=== PATIENT | female | born 1985 | race Caucasian/White ===

== ENCOUNTER 2021-03-16 15:28 | Outpatient (CLI) | payer BC ==
[2021-03-16 16:21] LABS: % IRON SATURATION 28 % (20-50); IRON 85 ug/dL (28-170); TOTAL IRON BINDING CAPACITY 304 ug/dL (250-450); TRANSFERRIN 217 mg/dL (192-382)
[2021-03-16 16:22] LABS: THYROID STIMULATING HORMONE 1.15 uIU/mL (0.34-5.60)
[2021-03-16 16:28] LABS: FERRITIN 41.2 ng/mL (11.0-306.8)
== END 2021-03-16 15:29 | disposition home or self-care (01) ==
LOC: LAB 15:28
PROVIDERS: ATTEND Nurse Practitioner Family
DX: E03.8 Other specified hypothyroidism (principal); E06.3 Autoimmune thyroiditis; D64.9 Anemia, unspecified
CPT/HCPCS: 36415; 82728; 83540; 84443; 84466

== ENCOUNTER 2021-07-30 16:02 | Outpatient (CLI) | payer BC ==
--- NOTE | 2021-07-30 20:43 | Ultrasound Report ---
PROCEDURE: Pelvic w/Transvaginal INDICATIONS: CHRONIC PELVIC PAIN TECHNIQUE: Real-time scanning was performed of the pelvic organs, with image documentation. Additional endovagi nal scanning was necessary due to incomplete visualization of the adnexal and endometrial structures by transabdominal scanning. COMPARISON: None. FINDINGS: No pathologic free abdominal or pelvic fluid. Uterus: Uterus is normal in size at 9.1 x 3.3 x 3.7 cm. The endometrium measures 3.9 mm in combined thickness. Ovaries: Right ovary measures 3.6 x 2.3 x 2.3 cm with an ovarian volume of 9.8 mL. Left ovary measur es 3.6 x 1.5 x 3.1 cm with a volume of 8.66 mL. Both ovaries have greater than 12 follicles. IMPRESSION: Both ovaries have greater than 12 follicles raising the question of polycystic ovary syndrome. Sugges t clinical correlation. Otherwise unremarkable. Reviewed by: Vargas Hendrix MD on 07/30/2021 8:42 PM PST Approved by: Vargas Hendrix MD on 07/30/2021 8:42 PM PST Station ID: [id number]
== END 2021-07-30 16:03 | disposition home or self-care (01) ==
LOC: DI 16:02
PROVIDERS: ATTEND Obstetrics & Gynecology
DX: R10.2 Pelvic and perineal pain (principal); R93.89 Abnormal findings on diagnostic imaging of other specified body structures

== ENCOUNTER 2021-08-04 07:24 | Outpatient (CLI) | payer BC ==
[2021-08-04 08:13] LABS: HCT - HEMATOCRIT 41.9 % (37.0-47.0); HGB - HEMOGLOBIN 14.1 g/dL (12.0-16.0); MEAN CORPUSCULAR HEMOGLOBIN 32.6 pg (27.0-31.0); MEAN CORPUSCULAR HGB CONC 33.7 g/dL (32.0-36.0); MEAN PLATELET VOLUME 10.3 fL (7.9-10.8); RED BLOOD COUNT 4.32 10^6/uL (4.20-5.40); RED CELL DISTRIBUTION WIDTH 12.1 % (12.0-15.0); WHITE BLOOD COUNT 6.7 x10^3/uL (4.8-10.8)
[2021-08-04 08:36] LABS: % IRON SATURATION 34 % (20-50); ALBUMIN 4.2 g/dL (3.2-5.5); ALBUMIN/GLOBULIN RATIO 1.4 (1.0-2.2); ALKALINE PHOSPHATASE 34 IU/L (42-121); ALT ALANINE AMINOTRANSFERASE 16 IU/L (10-60); AST ASPARTATE AMINOTRANSFERASE 15 IU/L (10-42); BILIRUBIN,TOTAL 0.8 mg/dL (0.2-1.0); BUN - BLOOD UREA NITROGEN 19 mg/dL (6-20); CALCIUM 9.1 mg/dL (8.5-10.3); CARBON DIOXIDE - CO2 27 mmol/L (21-32); CHLORIDE 104 mmol/L (101-111); CHOL/HDL RATIO 2.7 (<4.4); CHOLESTEROL 207 mg/dL; CREATININE 0.6 mg/dL (0.4-1.0); GFR - MDRD 114 (>89); GLUCOSE 95 mg/dL (70-100); HDL CHOLESTEROL 78 mg/dL; IRON 99 ug/dL (28-170); POTASSIUM 3.8 mmol/L (3.5-5.0); SODIUM 140 mmol/L (135-145); TOTAL IRON BINDING CAPACITY 291 ug/dL (250-450); TOTAL PROTEIN 7.1 g/dL (6.7-8.2); TRANSFERRIN 208 mg/dL (192-382); TRIGLYCERIDES 29 mg/dL
[2021-08-04 08:50] LABS: FERRITIN 44.6 ng/mL (11.0-306.8)
[2021-08-04 08:51] LABS: PROLACTIN 10.49 ng/mL
[2021-08-04 12:25] LABS: ESTIMATED AVERAGE GLUCOSE 94 mg/dL (70-100); HEMOGLOBIN A1c% 4.9 % (4.27-6.07)
== END 2021-08-04 07:25 | disposition home or self-care (01) ==
LOC: LAB 07:24
PROVIDERS: ATTEND Obstetrics & Gynecology
DX: E28.2 Polycystic ovarian syndrome (principal); Z13.220 Encounter for screening for lipoid disorders; Z13.21 Encounter for screening for nutritional disorder; L65.9 Nonscarring hair loss, unspecified
CPT/HCPCS: 36415; 80053; 80061; 81599; 82306; 82627; 82728; 83036; 83498; 83520; 83540; 83721; 84146; 84403; 84443; 84466; 85027

== ENCOUNTER 2021-08-25 07:19 | Outpatient (CLI) | payer BC | END 2021-08-25 07:20 | disposition home or self-care (01) | LOC: LAB 07:19 | PROVIDERS: ATTEND Obstetrics & Gynecology | DX: Z32.01 Encounter for pregnancy test, result positive (principal) | CPT/HCPCS: 36415; 84702 ==

== ENCOUNTER 2021-08-28 13:34 | Outpatient (CLI) | payer BC | END 2021-08-28 13:35 | disposition home or self-care (01) | LOC: LAB 13:34 | PROVIDERS: ATTEND Obstetrics & Gynecology | DX: Z32.01 Encounter for pregnancy test, result positive (principal) | CPT/HCPCS: 36415; 84702 ==

== ENCOUNTER 2021-08-31 07:49 | Outpatient (CLI) | payer BC | END 2021-08-31 07:50 | disposition home or self-care (01) | LOC: LAB 07:49 | PROVIDERS: ATTEND Obstetrics & Gynecology | DX: Z32.01 Encounter for pregnancy test, result positive (principal) | CPT/HCPCS: 36415; 84702 ==

== ENCOUNTER 2021-09-06 15:47 | Outpatient (CLI) | payer BC ==
--- NOTE | 2021-09-06 17:07 | Ultrasound Report ---
PROCEDURE: OB First Trimester w/TV INDICATIONS: POSITIVE TEST OUTSIDE/PRIOR DATING DATA: Last menstrual period (LMP): 07/23/2021. LMP-based estimated date of delivery (KEV): 04/29/2022. First dating scan (date and location): 09/06/2021. Estimated date of delivery (KEV) from first dating scan: 04/29/2022. The below data below was generated using the study generated KEV of 04/29/2022 TECHNIQUE: Real-time scanning was performed of the fetus and maternal pelvic organs, with image documentation. Endovaginal scanning was also performed to better visualize the fetus and maternal ovaries. COMPARISON: None FINDINGS: Embryo: Single intrauterine gestational sac is seen with fetus and yolk sac seen. heart rate i s 152 bpm. [place]-rump length measures 0.65 cm. Estimated gestational age is 6 weeks, 3 days. Measurement variability in dating: +/- 4 weeks by LMP, +/- 7 days by mean sac diameter (use before 6 weeks gestation if crown-rump length not able to be measured), +/- 5 days by crown-rump length (6-12 weeks gestation). Maternal organs: Right ovary is within normal limits. Corpus luteum is noted in left ovary measures 2 .4 x 1.9 x 2.5 cm in size. Small amount of free fluid is noted adjacent to left ovary. IMPRESSION: 1. Single live intrauterine with fetus and yolk sac seen. heart rate is 152 bpm. [place] mated gestational age is 6 weeks, 3 days. 2. No perigestational hemorrhage is seen. 3. Suggestion of corpus luteum in left ovary as above. Small amount of free fluid in left adnexa. Nor mal-appearing right ovary. Reviewed by: Levi Arizmendi MD on 09/06/2021 5:06 PM PST Approved by: Levi Arizmendi MD on 09/06/2021 5:06 PM PST Station ID: [id number]
== END 2021-09-06 15:48 | disposition home or self-care (01) ==
LOC: DI 15:47
PROVIDERS: ATTEND Obstetrics & Gynecology
DX: O99.891 Other specified diseases and conditions complicating pregnancy (principal); R93.89 Abnormal findings on diagnostic imaging of other specified body structures; Z3A.01 Less than 8 weeks gestation of pregnancy

== ENCOUNTER 2021-09-10 08:44 | Outpatient (CLI) | payer BC ==
[2021-09-10 09:09] LABS: BASOPHILS % (AUTO) 0.5 %; EOSINOPHILS # (AUTO) 0.2 10^3/uL (0.0-0.7); EOSINOPHILS % (AUTO) 2.2 %; HCT - HEMATOCRIT 40.2 % (37.0-47.0); HGB - HEMOGLOBIN 14.1 g/dL (12.0-16.0); LYMPHOCYTES # (AUTO) 1.6 10^3/uL (1.5-3.5); LYMPHOCYTES % (AUTO) 18.5 %; MEAN CORPUSCULAR HEMOGLOBIN 33.4 pg (27.0-31.0); MEAN CORPUSCULAR HGB CONC 35.1 g/dL (32.0-36.0); MEAN CORPUSCULAR VOLUME 95.3 fL (81.0-99.0); MEAN PLATELET VOLUME 10.4 fL (7.9-10.8); MONOCYTES # (AUTO) 0.6 10^3/uL (0.0-1.0); MONOCYTES % (AUTO) 6.7 %; NEUTROPHILS # (AUTO) 6.3 10^3/uL (1.5-6.6); NEUTROPHILS % (AUTO) 71.8 %; PLT - PLATELET COUNT 218 10^3/uL (130-450); RED BLOOD COUNT 4.22 10^6/uL (4.20-5.40); WHITE BLOOD COUNT 8.8 x10^3/uL (4.8-10.8)
[2021-09-10 09:11] LABS: BILIRUBIN,URINE NEGATIVE (NEGATIVE); GLUCOSE, URINE (UA) NEGATIVE (NEGATIVE); KETONES,URINE (UA) NEGATIVE (NEGATIVE); LEUKOCYTE ESTERASE, URINE NEGATIVE (NEGATIVE); NITRITE,URINE NEGATIVE (NEGATIVE); OCCULT BLOOD,URINE NEGATIVE (NEGATIVE); PH,URINE 5.5 PH (5.0-7.5); PROTEIN,URINE NEGATIVE (NEGATIVE); UROBILINOGEN,URINE 0.2 (NORMAL) E.U./dL (NORMAL)
[2021-09-10 09:37] LABS: BACTERIA,URINE None Seen /HPF (None Seen); CLARITY,URINE CLEAR (CLEAR); RBC,URINE None Seen /HPF (0-5); SQUAMOUS EPITHELIAL CELL,UR NONE SEEN (<= Few); WBC,URINE 0-3 /HPF (0-5)
[2021-09-11 09:27] LABS: HEPATITIS B SURFACE ANTIGEN NON-REACTIVE (NON-REACTIVE); HEPATITIS C ANTIBODY NON-REACTIVE (NON-REACTIVE)
[2021-09-13 16:02] LABS: HIV AG/AB 4TH GEN NON-REACTIVE (NON-REACTIVE)
== END 2021-09-10 08:45 | disposition home or self-care (01) ==
LOC: LAB 08:44
PROVIDERS: ATTEND Obstetrics & Gynecology
DX: Z36.89 Encounter for other specified antenatal screening (principal); Z32.01 Encounter for pregnancy test, result positive
CPT/HCPCS: 36415; 81001; 85025; 86592; 86762; 86787; 86803; 86850; 86900; 86901; 87086; 87340; 87389

== ENCOUNTER 2021-10-05 07:31 | Outpatient (CLI) | payer BC | END 2021-10-05 07:32 | disposition home or self-care (01) | LOC: LAB 07:31 | PROVIDERS: ATTEND Obstetrics & Gynecology | DX: O09.891 Supervision of other high risk pregnancies, first trimester (principal); Z36.89 Encounter for other specified antenatal screening | CPT/HCPCS: 36415 ==

== ENCOUNTER 2021-10-15 08:00 | Outpatient (CLI) | payer BC ==
[2021-10-15 21:52] LABS: BACTERIAL VAGINOSIS DNA NEGATIVE (NEGATIVE); CANDIDA GLABRATA DNA NEGATIVE (NEGATIVE); CANDIDA GROUP DNA NEGATIVE (NEGATIVE); CANDIDA KRUSEI DNA NEGATIVE (NEGATIVE); TRICHOMONAS VAGINALIS DNA NEGATIVE (NEGATIVE)
[2021-10-15 22:32] LABS: CHLAMYDIA TRACHOMATIS DNA NEGATIVE (NEGATIVE); NEISSERIA GONORRHOEAE DNA NEGATIVE (NEGATIVE); TRICHOMONAS VAGINALIS DNA NEGATIVE (NEGATIVE)
== END 2021-10-15 23:59 | disposition home or self-care (01) ==
LOC: LAB.WC 08:00
PROVIDERS: ATTEND Obstetrics & Gynecology
DX: N76.0 Acute vaginitis (principal); Z11.3 Encounter for screening for infections with a predominantly sexual mode of transmission
CPT/HCPCS: 87491; 87591; 87661; 87801

== ENCOUNTER 2021-10-20 12:00 | Outpatient (CLI) | payer BC ==
[2021-10-20 12:40] LABS: THYROID STIMULATING HORMONE 0.68 uIU/mL (0.34-5.60)
== END 2021-10-20 12:01 | disposition home or self-care (01) ==
LOC: LAB 12:00
PROVIDERS: ATTEND Obstetrics & Gynecology
DX: O09.891 Supervision of other high risk pregnancies, first trimester (principal)
CPT/HCPCS: 36415; 84443

== ENCOUNTER 2021-11-12 07:46 | Outpatient (CLI) | payer OTHER | END 2021-11-12 07:47 | disposition home or self-care (01) | LOC: LAB 07:46 | PROVIDERS: ATTEND Specialist | DX: Z34.02 Encounter for supervision of normal first pregnancy, second trimester (principal); Z3A.16 16 weeks gestation of pregnancy | CPT/HCPCS: 81599; 82105 ==

== ENCOUNTER 2022-01-18 07:51 | Outpatient (CLI) | payer BC, OTHER | END 2022-01-18 07:52 | disposition home or self-care (01) | LOC: LAB 07:51 | PROVIDERS: ATTEND Obstetrics & Gynecology | DX: E03.9 Hypothyroidism, unspecified (principal) | CPT/HCPCS: 36415; 84443 ==

== ENCOUNTER 2022-02-03 07:41 | Outpatient (CLI) | payer OTHER ==
[2022-02-03 08:22] LABS: GTT GLUCOSE,FASTING 87 mg/dL (70-100)
== END 2022-02-03 07:42 | disposition home or self-care (01) ==
LOC: LAB 07:41
PROVIDERS: ATTEND Nurse Practitioner
DX: O99.815 Abnormal glucose complicating the puerperium (principal)
CPT/HCPCS: 36415; 82951; 82952

== ENCOUNTER 2022-03-25 06:55 | Outpatient (CLI) | payer OTHER ==
--- NOTE | 2022-03-25 17:15 | Ultrasound Report ---
PROCEDURE: OB F/U or Repeat INDICATIONS: GDM CLASS A1 OUTSIDE/PRIOR DATING DATA: Last menstrual period (LMP): 07/23/2021. LMP-based estimated date of delivery (KEV): 04/29/2022. First dating scan (date and location): 09/06/2021. Estimated date of delivery (KEV) from first dating scan: 04/29/2022. TECHNIQUE: Real-time scanning was performed of the fetus, with image documentation and biometric measurements. Endovaginal scanning: Not indicated COMPARISON: 02/23/2022, 09/06/2021. FINDINGS: General: A single living intrauterine gestation is present. Presentation: Vertex Placenta: Placental position is anterior, without previa. Amniotic fluid index: 15 cm, normal for gestational age. heart rate: 143 beats per minute. Maternal cervical canal: Not evaluated. biometrics: Biparietal diameter: 8.5 cm, 35 weeks, 5 days. Head circumference: 31.47 cm, 35 weeks, 2 days. Abdominal circumference: 29.61 cm, 33 weeks, 4 days. Femur length: 6.72 cm, 34 weeks, 4 days. Estimated gestational age from initial scan: 35 weeks, 0 day. Composite gestational age from present scan: 34 weeks, 6 days. Estimated weight and percentile: 2385.3 g, 26.2%. Measurement variability in biometric dating: +/- 10 days from 12-20 weeks gestation, +/- 2 weeks from 20-30 weeks gestation, +/- 3 weeks at 30 weeks gestation or more. Other: chest, stomach, bilateral kidneys and urinary bladder are visualized and are within norm al limits. IMPRESSION: 1. Single live intrauterine gestation with fetus in vertex presentation. heart rate is 143 bpm. Normal amount of amniotic fluid. Estimated weight is at 26.2%. Reviewed by: Levi Arizmendi MD on 03/25/2022 5:13 PM PDT Approved by: Levi Arizmendi MD on 03/25/2022 5:13 PM PDT Station ID: [id number]
== END 2022-03-25 06:56 | disposition home or self-care (01) ==
LOC: DI 06:55
PROVIDERS: ATTEND Obstetrics & Gynecology
DX: O24.410 Gestational diabetes mellitus in pregnancy, diet controlled (principal); Z3A.34 34 weeks gestation of pregnancy

== ENCOUNTER 2022-04-05 14:02 | Outpatient (CLI) | payer OTHER ==
[2022-04-05 14:43] LABS: ALBUMIN 3.1 g/dL (3.2-5.5); ALBUMIN/GLOBULIN RATIO 0.9 (1.0-2.2); BILIRUBIN,TOTAL 0.8 mg/dL (0.2-1.0); CALCIUM 9.3 mg/dL (8.5-10.3); CREATININE 0.5 mg/dL (0.4-1.0); POTASSIUM 3.7 mmol/L (3.5-5.0); TOTAL PROTEIN 6.4 g/dL (6.7-8.2)
== END 2022-04-05 14:03 | disposition home or self-care (01) ==
LOC: LAB 14:02
PROVIDERS: ATTEND Obstetrics & Gynecology
DX: O09.513 Supervision of elderly primigravida, third trimester (principal); O99.713 Diseases of the skin and subcutaneous tissue complicating pregnancy, third trimester; L29.9 Pruritus, unspecified
CPT/HCPCS: 36415; 80053; 82247; 82248; 82542

== ENCOUNTER 2022-04-06 08:00 | Outpatient (CLI) | payer OTHER | END 2022-04-06 23:59 | disposition home or self-care (01) | LOC: LAB.WC 08:00 | PROVIDERS: ATTEND Obstetrics & Gynecology | DX: Z36.85 Encounter for antenatal screening for Streptococcus B (principal) | CPT/HCPCS: 87797 ==

== ENCOUNTER 2022-04-26 09:30 | Inpatient (IN) | payer OTHER ==
[~2022-04-26 09:30] MED LIST: LACTATED RINGERS 1,000 ML IV SCH
[2022-04-26] MEDS ORDERED: TRANEXAMIC ACID IN NACL 1,000 MG/100 ML BAG IV PRN (09:38)
[2022-04-26] MEDS ORDERED: OXYTOCIN 10 UNIT/ML VIAL IM PRN (09:38)
[2022-04-26] MEDS ORDERED: miSOPROStoL 200 MCG TABLET PR PRN (09:38)
[2022-04-26] MEDS ORDERED: LABETALOL 20 MG/4 ML SYRINGE IVP PRN ×3 (09:38)
[2022-04-26] MEDS ORDERED: miSOPROStoL 200 MCG TABLET BC PRN (09:38)
[2022-04-26] MEDS ORDERED: fentaNYL 100 MCG/2 ML VIAL IVP PRN (09:38)
[2022-04-26] MEDS ORDERED: METHYLERGONOVINE 0.2 MG/ML VIAL IM PRN (09:38)
[2022-04-26] MEDS ORDERED: NIFEdipine 10 MG CAPSULE PO PRN (09:38)
[2022-04-26] MEDS ORDERED: SODIUM CHLORIDE FLUSH 0.9% 10 ML SYRINGE IVP PRN (09:38)
[2022-04-26] MEDS ORDERED: CARBOPROST TROMETHAMINE 250 MCG/ML AMP IM PRN (09:38)
[2022-04-26] MEDS ORDERED: TERBUTALINE 1 MG/ML VIAL SUBQ PRN (09:38)
[2022-04-26] MEDS ORDERED: lidocaine 1% 20 ML MDV ID PRN (09:38)
[2022-04-26] MEDS ORDERED: hydrALAZINE INJ 20 MG/ML VIAL IVP PRN ×2 (09:38)
[2022-04-26] MEDS ORDERED: SODIUM CHLORIDE FLUSH 0.9% 10 ML SYRINGE IVP SCH (10:00)
[2022-04-26] MEDS ORDERED: LACTATED RINGERS 1,000 ML IV ONE (11:00)
[2022-04-26] MEDS: miSOPROStoL 100 MCG TABLET BC SCH (11:05)
[2022-04-26 11:39] LABS: BASOPHILS # (AUTO) 0.1 10^3/uL (0.0-0.1); BASOPHILS % (AUTO) 0.4 %; EOSINOPHILS # (AUTO) 0.2 10^3/uL (0.0-0.7); EOSINOPHILS % (AUTO) 1.1 %; HCT - HEMATOCRIT 39.1 % (37.0-47.0); HGB - HEMOGLOBIN 13.5 g/dL (12.0-16.0); LYMPHOCYTES # (AUTO) 0.8 10^3/uL (1.5-3.5); LYMPHOCYTES % (AUTO) 5.5 %; MEAN CORPUSCULAR HEMOGLOBIN 32.9 pg (27.0-31.0); MEAN CORPUSCULAR HGB CONC 34.5 g/dL (32.0-36.0); MEAN CORPUSCULAR VOLUME 95.4 fL (81.0-99.0); MEAN PLATELET VOLUME 11.6 fL (7.9-10.8); MONOCYTES # (AUTO) 0.7 10^3/uL (0.0-1.0); MONOCYTES % (AUTO) 5.2 %; NEUTROPHILS # (AUTO) 11.9 10^3/uL (1.5-6.6); NEUTROPHILS % (AUTO) 86.7 %; PLT - PLATELET COUNT 158 10^3/uL (130-450); RED CELL DISTRIBUTION WIDTH 13.5 % (12.0-15.0); WHITE BLOOD COUNT 13.7 x10^3/uL (4.8-10.8)
--- NOTE | 2022-04-26 14:51 | HISTORY & PHYSICAL EXAMINATION ---
Admit History - : 1 Parity: 0 Care: positive: [facility] Risk/History: positive: None Complications This : positive: Gestational diabetes (A1GDM) Smoking Status: Never smoker - Mother's Labs Mother's Blood Type: positive: O Mother's RH: positive: Positive GBS: positive: Group B Step Negative Rubella Status: positive: Immune - Other Maternal History Other Maternal History: HPI: 37-year-old at 39 weeks 4 days gestation by LMP consistent with 6-week ultrasound presents today for cervical ripening. She has good movement. Denies loss of fluid. No ESPINOZA/BV or RUQP. No vaginal bleeding. Denies nausea and vomiting. Denies urinary urgency or dysuria. All other symptoms reviewed and were negative except per HPI. Course LMP: 07/23/2021 KEV BY LMP:04/29/2022 Initial U/S: 09/06/2021 6 wks 3 days c/w LMP KEV FINAL KEV: 04/29/2022 A1 gestational diabetes: Continues to have good control. Continue surveillance at this time. 03/25/22 Normal growth scan. 15 cm amniotic fluid, 2305 g, 26 percentile. Elderly Primigravida: Will be 37 at time of delivery. Taking aspirin 81 mg daily. Problems: Hypothyroidism: Currently on 50 mcg daily except 100 mcg on Sundays. Last TSH 10/20/2021: 0.68. Repeat 01/18/22 0.95. 03/11/22 0.83. We will likely check outside of . O POSITIVE /Rubella: IMMUNE VZV: IMMUNE Gentic testing: [place] : low risk having a ( GIRL ) AFP- negative FAS: WNL, 365G, 79TH%ILE, 3VC, Anterior pleacenta w/o previa, but low lying at 2.3cm from internal cervical os. SAMARIA wnl Glucola at 28 weeks-1HR 176 3HR 87 219, 192, 144 (FAIL) DM education complete covid vaccine: Fully vaccinated . Boosted 03/13 TDAP 01/31/2022 GBS 04/06- Negative HSV: Denies Breast pump Rx Given. Has pump MOD:Anticipate . Membrane sweep today. IOL tomorrow if unsuccessful. pp contraception: Likely IUD Pap: 11/03/2017 : NORMAL PMH Hypothyroidism A1 gestational diabetes Anxiety Kidney stones PSH Tonsillectomy OB History SH Denies tobacco, alcohol, drugs Family History Father: Depression Maternal grandmother: Lymphoma Maternal grandfather: Lung cancer Paternal grandmother: Lung cancer Paternal grandfather: Bladder cancer, hypertension Allergies No known drug allergies Medications Levothyroxine 50 mcg Escitalopram 5 mg Physical exam: General: Alert, oriented, no acute distress Head: Normal cephalic atraumatic Eyes: PERRLA, extraocular motions intact. Respiratory: Normal rate of respiration. No accessory muscle use, normal respiratory effort. Cardiovascular: Regular rate and rhythm Abdomen: Gravid, nontender, nondistended Extremities: Normal range of motion Neuro: Oriented x3. Normal movements Psych: Appropriate mood and affect. Normal judgment and insight SVE: /-3 FHT: 145 beats per baseline, moderate variability, accelerations present decelerations. [place]: 6 to 8 minutes Plan 37-year-old at 39 weeks 4 days gestation with 6-week ultrasound presenting for cervical ripening prior to induction of labor 1. Cervical ripening -Unfavorable cervix. We will start with misoprostol 25 mcg weekly. -Continuous monitoring -Epidural patient's request -Anticipate admission cervix becomes available. 2. 39 weeks gestation 3. A1 GDM -Fasting blood sugar not elevated. Will have patient eat and assess active labor. 4. Anxiety -We will continue assess . Meds/Allgy - Home Medications Home Medications: Ambulatory Orders Medication Instructions Recorded Confirmed Aspirin [Aspirin EC] 81 mg PO DAILY 02/15/22 02/15/22 Cholecalciferol (Vitamin D3) 25 mcg PO DAILY 02/15/22 02/15/22 [Vitamin D3] Escitalopram [Lexapro] 10 mg PO DAILY 02/15/22 02/15/22 Levothyroxine Sodium 50 mcg PO DAILY 02/15/22 02/15/22 [Levothyroxine] - Allergies Allergies/Adverse Reactions: Allergies Allergy/AdvReac Type Severity Reaction Status Date / Time grass pollen Allergy Unknown Verified 02/15/22 10:50 Physical - Abdominal Exam Vital Signs: Temp Pulse Resp BP Pulse Ox O2 Flow Rate 98.2 F 94 16 105/65 100 04/26/22 13:57 04/26/22 09:58 04/26/22 09:58 04/26/22 09:58 04/26/22 09:58
[2022-04-26] MEDS ORDERED: ROPIVACAINE 0.2% 200 MG/100 ML BAG EP ONE (19:40)
[2022-04-26] MEDS ORDERED: LACTATED RINGERS 1,000 ML ONE (19:45)
[2022-04-26] MEDS ORDERED: NALOXONE 0.4 MG/ML VIAL IVP PRN (20:07)
[2022-04-26] MEDS ORDERED: ROPIVACAINE 0.2% 200 MG/100 ML BAG EP PRN (20:07)
[2022-04-26] MEDS ORDERED: NALBUPHINE 10 MG/ML AMP IVP PRN (20:07)
[2022-04-26] MEDS ORDERED: diphenhydrAMINE INJ 50 MG/ML VIAL IVP PRN (20:07)
[2022-04-26] MEDS ORDERED: ONDANSETRON 4 MG/2 ML VIAL IVP PRN (20:07)
[2022-04-26] MEDS ORDERED: ePHEDrine 50 MG/ML VIAL IVP PRN (20:07)
--- NOTE | 2022-04-26 20:07 | ANESTHESIA ---
Pre-Anesthesia VS, & Labs - Diagnosis active labor - Procedure labor epidural Vital Signs: Temp Pulse Resp BP Pulse Ox O2 Flow Rate 36.8 C 94 16 105/65 100 04/26/22 13:57 04/26/22 09:58 04/26/22 09:58 04/26/22 09:58 04/26/22 09:58 Height: 5 ft 2 in Weight (kg): 61.689 kg Body Mass Index: 24.8 BMI Classification: Normal - Is Patient ?: Yes - Lab Results Current Lab Results: Laboratory Tests 04/26/22 19:27: POC Whole Bld Glucose 106 H 04/26/22 10:30: WBC 13.7 H, RBC 4.10 L, Hgb 13.5, Hct 39.1, MCV 95.4, MCH 32.9 H , MCHC 34.5, RDW 13.5, Plt Count 158, MPV 11.6 H, Neut # (Auto) 11.9 H, Lymph # (Auto) 0.8 L, [place] # (Auto) 0.7, Eos # (Auto) 0.2, Baso # (Auto) 0.1, Absolute Nucleated RBC 0.00, Nucleated RBC % 0.0 04/26/22 10:30: Blood Type O POSITIVE, Antibody Screen NEGATIVE Fish Bones: 04/26/22 10:30 Home Medications and Allergies Active Medications Carboprost Tromethamine (Carboprost Tromethamine 250 Mcg/Ml Amp) 250 mcg IM .ONCE PRN PRN Reason: Hemorrhage Fentanyl (Fentanyl 100 Mcg/2 Ml Vial) 50 mcg IVP Q1H PRN PRN Reason: Severe Pain (score 7-10) Hydralazine HCl (Hydralazine Inj 20 Mg/Ml Vial) 5 - 10 mg IVP Q20M PRN; Protocol PRN Reason: SBP> or= 160 OR DBP> or= 110 Hydralazine HCl (Hydralazine Inj 20 Mg/Ml Vial) 10 mg IVP .ONCE PRN; Protocol PRN Reason: SBP> or= 160 OR DBP> or= 110 Oxytocin/Sodium Chloride (Pitocin/Sodium Chloride) 500 mls @ 999 mls/hr IV PRN PRN; Protocol PRN Reason: POST- HEMORR PREVENTION Tranexamic Acid (Tranexamic 1,000 Mg/100ml-Nacl) 1,000 mg in 100 mls @ 600 mls/hr IV Q30M PRN PRN Reason: EBL >1200mL and within 3hr Labetalol HCl (Labetalol 20 Mg/4 Ml Syringe) 20 - 80 mg IVP Q10M PRN; Protocol PRN Reason: SBP> or= 160 OR DBP> or= 110 Labetalol HCl (Labetalol 20 Mg/4 Ml Syringe) 20 mg IVP .ONCE PRN; Protocol PRN Reason: SBP> or= 160 OR DBP> or= 110 Labetalol HCl (Labetalol 20 Mg/4 Ml Syringe) 20 - 40 mg IVP Q10M PRN; Protocol PRN Reason: SBP> or= 160 OR DBP> or= 110 Lidocaine HCl (Lidocaine 1% 20 Ml Mdv) 20 ml ID .ONCE PRN PRN Reason: PERINEAL REPAIR Stop: 04/29/22 09:39 Methylergonovine Maleate (Methylergonovine 0.2 Mg/Ml Vial) 0.2 mg IM .ONCE PRN PRN Reason: Hemorrhage Misoprostol (Misoprostol 200 Mcg Tablet) 600 mcg BC .ONCE PRN PRN Reason: Hemorrhage Misoprostol (Misoprostol 200 Mcg Tablet) 800 mcg VT .ONCE PRN PRN Reason: Hemorrhage Misoprostol (Misoprostol 100 Mcg Tablet) 25 mcg BC Q4H SANGEETHA Stop: 04/27/22 06:01 Last Admin: 04/26/22 11:05 Dose: 25 mcg Nifedipine (Nifedipine 10 Mg Capsule) 10 - 20 mg PO Q20M PRN; Protocol PRN Reason: SBP> or= 160 OR DBP> or= 110 Oxytocin (Oxytocin 10 Unit/Ml Vial) 10 unit IM .ONCE PRN PRN Reason: Step One if no IV access. Sodium Chloride (Sodium Chloride Flush 0.9% 10 Ml Syringe) 10 ml IVP PRN PRN PRN Reason: NEEDED PER PROVIDER ORDERS Sodium Chloride (Sodium Chloride Flush 0.9% 10 Ml Syringe) 10 ml IVP Q8H SANGEETHA Terbutaline Sulfate (Terbutaline 1 Mg/Ml Vial) 0.25 mg SUBQ .ONCE PRN PRN Reason: Tachystole Aspirin [Aspirin EC] 81 mg PO DAILY 02/15/22 Cholecalciferol (Vitamin D3) [Vitamin D3] 25 mcg PO DAILY 02/15/22 Escitalopram [Lexapro] 10 mg PO DAILY 02/15/22 Levothyroxine Sodium [Levothyroxine] 50 mcg PO DAILY 02/15/22 Allergies/Adverse Reactions: Allergies Allergy/AdvReac Type Severity Reaction Status Date / Time grass pollen Allergy Unknown Verified 02/15/22 10:50 Anes History & Medical History - Anesthetic History Anesthesia Complications: reports: No previous complications Family history of Anesthesia Complications: Denies Family history of Malignant Hyperthermia: Denies - Medical History Cardiovascular: reports: None Pulmonary: reports: None Gastrointestinal: reports: None Urinary: reports: None Neuro: reports: None Musculoskeletal: reports: None Endocrine/Autoimmune: reports: HyPOthyroidism, Other (gestational diabetes) Smoking Status: Never smoker - Obstetrical History : 1 Parity: 0 Events: reports: None Complications: reports: Gestational diabetes (A1GDM) Exam General: Alert, Oriented x3, Cooperative Dental: WNL Mouth Openin Fingerbreadth Neck Mobility: Normal Mallampati classification: I Thyromental Distance: 4-6 cm Respiratory: Lungs clear Cardiovascular: Regular rate Plan Anesthesia Type: Epidural Consent for Procedure(s) Verified and Reviewed: Yes Code Status: Attempt Resuscitation ASA classification: 2-Mild systemic disease Is this case an emergency?: No
--- NOTE | 2022-04-26 21:54 | PROVIDER PROGRESS NOTE ---
Labor Progress Note - Uterine Monitoring Uterine Monitoring Mode: positive: External toco Contraction Frequency (min/apart): 2-4 Contraction Intensity: positive: Moderate to strong Uterine Resting Tone: positive: Soft - Monitoring Monitor Mode: positive: External ultrasound Heart Rate Baseline: 140 Heart Rate Variability: positive: Moderate (6-25 bmp) Accelerations: positive: Present, 15x15 Decelerations: positive: None Strip Review: positive: Category I - Vaginal Exam Dilation (in cm): 7 Effacement (%): 80 Station: -2 Cervical Position: Midposition - Labor Progress Note Labor Progress Note/Additional Text: Patient received 1 dose of misoprostol 25 mcg buccal at 1102. She was then tigist too frequently for another dose, so a CRB was placed at 1545 and came out at 1850. She was feeling strong contractions and received an epidural for pain control. She did have a couple of random late decelerations that were intermittent, and resolved. Has had good variability throughout. Currently category 1 tracing. On my current exam, head was well engaged, cervix was 6 cm, 80% effaced, -2 station. Amniotomy was performed with a moderate amount of meconium.
[2022-04-27] MEDS: OXYTOCIN/SODIUM CHLORIDE 500 ML IV PRN ×2 (01:30→03:15)
[2022-04-27] MEDS ORDERED: SIMETHICONE CHEW 80 MG TABLET PO PRN ×2 (01:38→07:23)
[2022-04-27] MEDS ORDERED: DOCUSATE SODIUM 100 MG CAPSULE PO PRN (01:38)
--- NOTE | 2022-04-27 01:47 | DELIVERY NOTE ---
Delivery Note - Labor Labor: positive: Induced by ARM - Infant Delivery Method Delivery Method: positive: Spontaneous vaginal delivery - Cervical Ripening Method Cervical Ripening Method: positive: Balloon device, Misoprostil - Presentation Presentation: positive: OA - occiput anterior - Nuchal Cord Nuchal Cord: positive: None - Anesthetic Anesthetic Type: - Amniotic Fluid Description Amniotic Fluid Description: positive: Moderate meconium - Episiotomy Type Episiotomy Type: positive: None - Laceration Laceration: positive: 1st degree - Suture Suture Type: positive: Vicryl Suture Size: positive: 3-0 - Delivery Outcome Delivery Outcome: positive: Livebirth - [address]: positive: Placed in direct skin contact with mother, Bulb syringe [address] sex: positive: Female - Cord Cord: positive: 3 vessels - Placenta Placenta: positive: Intact - Estimated Blood Loss Estimated Blood Loss (in cc): 100 - Post Delivery Events Post Delivery Events: positive: No post delivery events - Delivery Comments (Free Text/Narrative) Delivery Comments (Free Text/Narrative): Preoperative Diagnoses 37-year-old G1, P0 39 weeks gestation A1 GDM Advanced maternal age Hypothyroidism Postoperative Diagnoses Same Delivered Patient was managed by [facility] with complicated by A1 GDM, hypothyroidism, managed with levothyroxine this . Patient was managed with aspirin for advanced maternal age. Overall uncomplicated . She presented at 39 weeks gestation for induction of labor. She received 1 dose of misoprostol and began tigist regularly. She then received a cervical ripening balloon as she was tigist too frequently for misoprostol. This was removed spontaneously. Patient continued to contract on her own and amniotomy was performed with a moderate amount of moderate meconium stained fluid. She continued to progress on her own until complete and ready to push at 0031 and started pushing at 0045. Delivery Summary: Patient was placed in the dorsal lithotomy position. Upon maternal pushing the head was delivered atraumatically followed by the anterior shoulder, posterior shoulder, then the remainder of the infant's body at 0122. A female was delivered with APGARS of 8 at 1 minute and 8 at 5 minutes. The was placed on its mother's chest . After the cord finished pulsating, the umbilical cord was clamped times two and cut. Pediatrics present at time of delivery. The placenta delivered intact with three vessel cord. Placenta was not sent to pathology. Oxytocin was added to the IV fluid and allowed to run freely. Uterine massage was performed until uterus was deemed firm. Upon section of the perineum, a first-degree midline laceration was noted. This was repaired with a single [id number] of 3-0 Vicryl. Upon re-inspection the patient was hemostatic. Uterus again massaged and found to be firm. Needle and sponge counts were correct. Patient was stable and allowed to recover in L&D room. was stable and remained in room with mother. weight is pending at this time.
[2022-04-27] MEDS ORDERED: IBUPROFEN 600 MG TABLET PO SCH (02:00)
[2022-04-27] MEDS ORDERED: ACETAMINOPHEN 500 MG TABLET PO SCH (02:00)
[2022-04-27] MEDS ORDERED: LACTATED RINGERS 1,000 ML IV SCH ×2 (02:00→07:00)
[2022-04-27] MEDS ORDERED: fentaNYL 100 MCG/2 ML VIAL IVP SCH (04:25)
--- NOTE | 2022-04-27 04:50 | PROVIDER PROGRESS NOTE ---
Subjective - Prog Note Date Prog Note Date: 04/27/22 Prog Note Time: 04:50 - Subjective Subjective: Called the patient's bedside as she had several gushes of fluid. She received 1 dose of Methergine. After epidural was removed, she began experiencing intense rectal pressure but was able to have a bowel movement. On exam, she has a right labial hematoma that did feel improvement in symptoms when compression was put on this. She did not tolerate exam despite fentanyl and nitrous oxide, so OR team was called in to get exam under anesthesia and explore for source of bleeding. Patient was consented for exam under anesthesia and possible I&D. Currently hemodynamically stable. CBC is pending. Objective - Vital Signs/Intake & Output Intake & Output: Intake & Output 04/24/22 04/25/22 04/26/22 04/27/22 23:59 23:59 23:59 23:59 Intake Total 1000 641.667 Balance 1000 641.667 - Lab Results Fish Bones: 04/26/22 10:30 Other Labs: Lab Results x24hrs 04/27/22 04/26/22 04/26/22 Range/Units 02:31 23:35 21:27 WBC (4.8-10.8) x10^3/uL RBC (4.20-5.40) 10^6/uL Hgb (12.0-16.0) g/dL Hct (37.0-47.0) % MCV (81.0-99.0) fL MCH (27.0-31.0) pg MCHC (32.0-36.0) g/dL RDW (12.0-15.0) % Plt Count (130-450) 10^3/uL MPV (7.9-10.8) fL Neut # (Auto) (1.5-6.6) 10^3/uL Lymph # (Auto) (1.5-3.5) 10^3/uL [place] # (Auto) (0.0-1.0) 10^3/uL Eos # (Auto) (0.0-0.7) 10^3/uL Baso # (Auto) (0.0-0.1) 10^3/uL Absolute Nucleated RBC x10^3/uL Nucleated RBC % /100WBC POC Whole Bld Glucose 151 H 90 94 (70 - 100) mg/dL Blood Type Antibody Screen 04/26/22 04/26/22 04/26/22 Range/Units 19:27 10:30 10:30 WBC 13.7 H (4.8-10.8) x10^3/uL RBC 4.10 L (4.20-5.40) 10^6/uL Hgb 13.5 (12.0-16.0) g/dL Hct 39.1 (37.0-47.0) % MCV 95.4 (81.0-99.0) fL MCH 32.9 H (27.0-31.0) pg MCHC 34.5 (32.0-36.0) g/dL RDW 13.5 (12.0-15.0) % Plt Count 158 (130-450) 10^3/uL MPV 11.6 H (7.9-10.8) fL Neut # (Auto) 11.9 H (1.5-6.6) 10^3/uL Lymph # (Auto) 0.8 L (1.5-3.5) 10^3/uL [place] # (Auto) 0.7 (0.0-1.0) 10^3/uL Eos # (Auto) 0.2 (0.0-0.7) 10^3/uL Baso # (Auto) 0.1 (0.0-0.1) 10^3/uL Absolute Nucleated RBC 0.00 x10^3/uL Nucleated RBC % 0.0 /100WBC POC Whole Bld Glucose 106 H (70 - 100) mg/dL Blood Type O POSITIVE Antibody Screen NEGATIVE
[2022-04-27 05:05] LABS: BASOPHILS % (AUTO) 0.3 %; EOSINOPHILS % (AUTO) 0.1 %; HCT - HEMATOCRIT 33.1 % (37.0-47.0); HGB - HEMOGLOBIN 11.4 g/dL (12.0-16.0); LYMPHOCYTES % (AUTO) 5.8 %; MEAN CORPUSCULAR HEMOGLOBIN 33.1 pg (27.0-31.0); MEAN CORPUSCULAR HGB CONC 34.4 g/dL (32.0-36.0); MEAN CORPUSCULAR VOLUME 96.2 fL (81.0-99.0); MEAN PLATELET VOLUME 10.8 fL (7.9-10.8); MONOCYTES % (AUTO) 9.5 %; NEUTROPHILS % (AUTO) 83.4 %; PLT - PLATELET COUNT 163 10^3/uL (130-450); RED BLOOD COUNT 3.44 10^6/uL (4.20-5.40); RED CELL DISTRIBUTION WIDTH 13.4 % (12.0-15.0); WHITE BLOOD COUNT 17.4 x10^3/uL (4.8-10.8)
[2022-04-27 05:10] LABS: ABNORMAL LYMPHS % (MANUAL) 0 %
[2022-04-27] MEDS ORDERED: fentaNYL 100 MCG/2 ML VIAL ONE (05:10)
[2022-04-27] MEDS ORDERED: KETAMINE 500 MG/10 ML VIAL ONE (05:10)
[2022-04-27] MEDS ORDERED: ONDANSETRON 4 MG/2 ML VIAL ONE (05:10)
[2022-04-27] MEDS ORDERED: SODIUM CHLORIDE 0.9% 10 ML VIAL IVP ONE ×2 (05:15→05:27)
[2022-04-27] MEDS ORDERED: MIDAZOLAM 2 MG/2 ML VIAL ONE (05:23)
[2022-04-27] MEDS ORDERED: ePHEDrine 50 MG/ML VIAL IVP ONE (05:27)
[2022-04-27 05:28] LABS: BAND NEUTROPHILS % (MANUAL) 2 %; DIFFERENTIAL COMMENT MANUAL DIFFERENTIAL; LYMPHOCYTES # (MANUAL) 0.9 10^3/uL (1.5-3.5); LYMPHOCYTES % (MANUAL) 5 %; MONOCYTES # (MANUAL) 0.9 10^3/uL (0.0-1.0); NEUTROPHILS # (MANUAL) 15.7 10^3/uL (1.5-6.6); PLATELET ESTIMATE, MANUAL NORMAL (130-450,000) (NORMAL); PLATELET MORPHOLOGY NORMAL APPEARANCE (NORMAL); RBC MORPHOLOGY (MULTIPLE) NORMAL APPEARANCE (NORMAL); WBC MORPHOLOGY (MULTIPLE) NORMAL APPEARANCE (NORMAL)
[2022-04-27] MEDS ORDERED: LIDOCAINE MPF 2%-EPI 1:200000 20 ML VIAL ONE (05:35)
[2022-04-27] MEDS ORDERED: oxyCODONE 5 MG TABLET PO PRN (06:10)
[2022-04-27] MEDS ORDERED: LACTATED RINGERS 1,000 ML IV ONE (06:13)
--- NOTE | 2022-04-27 06:16 | OPERATIVE REPORT ---
Operative Report - General Admit Date: 04/26/22 Procedure Date: 04/26/22 Planned Procedure: Exam under anesthesia Possible incision and drainage Pre-Op Diagnosis: Vaginal and vulvar hematoma Procedure Performed: Exam under anesthesia Incision and drainage Post Op Diagnosis: Vaginal and vulvar hematoma - Procedure Note Primary Surgeon: Rios Vaca MD Anesthesia Provider: Christina Guardado CRNA Anesthesia Technique: Moderate sedation Pathology: None Estimated Blood Loss (mL): 30 Urine Output (mL): 250 Complications: None - Other Other Information/Narrative: Patient was taken to the OR where conscious sedation was achieved. Enriquez catheter was placed. SCDs were activated. She was placed in dorsal high lithotomy position. Exam under anesthesia noted a right vulvar and vaginal hematoma extending part way up the vaginal canal. Exam of the uterus showed a small amount of clots removed and a rounded fundus. Right angle retractors were used to expose the area of the hematoma that measured approximately 5 cm x 7 cm. Hematoma did not appear to be expanding over the last hour. A small incision was made in the middle with some blood and clot expressed. Small amount of venous bleeding. No active arterial bleeding noted. Wet vaginal packing was placed to encourage tamponade of the venous bleeding. Patient was taken down from dorsolithotomy position and counts were correct. Patient was taken the PACU in stable condition.
[2022-04-27] MEDS: HYDROmorphone 1 MG/ML CARPUJECT ONE ×2 (06:30→06:40)
[2022-04-27] MEDS ORDERED: MORPHINE 2 MG/ML CARPUJECT IVP PRN (06:31)
[2022-04-27] MEDS ORDERED: ePHEDrine 50 MG/ML VIAL IVP PRN (06:31)
[2022-04-27] MEDS ORDERED: fentaNYL 100 MCG/2 ML VIAL IVP PRN (06:31)
[2022-04-27] MEDS ORDERED: ATROPINE ABBOJECT 1 MG/10 ML SYRINGE IVP PRN (06:31)
[2022-04-27] MEDS ORDERED: NALOXONE 0.4 MG/ML VIAL IVP PRN (06:31)
[2022-04-27] MEDS ORDERED: ONDANSETRON 4 MG/2 ML VIAL IVP PRN (06:31)
[2022-04-27] MEDS ORDERED: HYDROmorphone 0.5 MG/0.5 ML SYRINGE IVP PRN (06:31)
--- NOTE | 2022-04-27 06:53 | ANESTHESIA POST OP EVALUATION ---
Anesthesia Post Eval - Post Anesthesia Eval Vitals: Last Vital Signs Temp 36.3 C L 04/27/22 06:40 Pulse 73 04/27/22 06:40 Resp 12 04/27/22 06:40 BP 108/76 04/27/22 06:40 Pulse Ox 100 04/27/22 06:40 O2 Flow Rate CV Function Including HR & BP: Stable Pain Control: Satisfactory Nausea & Vomiting: Negative Mental Status: Baseline Respiratory Status: Airway Patent Hydration Status: Satisfactory Anesthesia Complications: None
[2022-04-27] MEDS: KETOROLAC 30 MG/ML VIAL IVP PRN ×3 (08:57→22:12)
[2022-04-27] MEDS: HYDROcod/ACETAM 5/325 MG TABLET PO PRN ×3 (13:01→21:18)
[2022-04-27] MEDS: ACETAMINOPHEN 325 MG TABLET PO SCH ×2 (15:48→22:11)
--- NOTE | 2022-04-27 17:11 | PROVIDER PROGRESS NOTE ---
Subjective - Prog Note Date Prog Note Date: 04/27/22 Prog Note Time: 17:08 - Subjective Pt reports feeling: Improved Objective - Vital Signs/Intake & Output Reviewed Vital Signs: Yes Vital Signs: Vital Signs x48h Temp Pulse Resp BP Pulse Ox 04/27/22 12:04 98.2 F 77 18 102/53 L 99 Intake & Output: Intake & Output 04/24/22 04/25/22 04/26/22 04/27/22 23:59 23:59 23:59 23:59 Intake Total 1000 1500.000 Output Total 580 Balance 1000 920.000 - Lab Results Fish Bones: 04/27/22 04:55 Other Labs: Lab Results x24hrs 04/27/22 04/27/22 04/26/22 Range/Units 04:55 02:31 23:35 WBC 17.4 H (4.8-10.8) x10^3/uL RBC 3.44 L (4.20-5.40) 10^6/uL Hgb 11.4 L (12.0-16.0) g/dL Hct 33.1 L (37.0-47.0) % MCV 96.2 (81.0-99.0) fL MCH 33.1 H (27.0-31.0) pg MCHC 34.4 (32.0-36.0) g/dL RDW 13.4 (12.0-15.0) % Plt Count 163 (130-450) 10^3/uL MPV 10.8 (7.9-10.8) fL Neut # (Auto) Not Reportable Lymph # (Auto) Not Reportable [place] # (Auto) Not Reportable Eos # (Auto) Not Reportable Baso # (Auto) Not Reportable Absolute Nucleated RBC Not Reportable Total Counted 100 Band Neuts % (Manual) 2 (0 - 10) % Abnorm Lymph % (Manual) 0 % Nucleated RBC % Not Reportable Neutrophils # (Manual) 15.7 H (1.5-6.6) 10^3/uL Lymphocytes # (Manual) 0.9 L (1.5-3.5) 10^3/uL Monocytes # (Manual) 0.9 (0.0-1.0) 10^3/uL Eosinophils # (Manual) 0.0 (0-0.7) 10^3/uL Basophils # (Manual) 0.0 (0-0.1) 10^3/uL Differential Comment MANUAL DIFFERENTIAL WBC Morphology NORMAL APPEARANCE (NORMAL) Platelet Estimate NORMAL (130-450,000) (NORMAL) Platelet Morphology NORMAL APPEARANCE (NORMAL) RBC Morph Micro Appear NORMAL APPEARANCE (NORMAL) POC Whole Bld Glucose 151 H 90 (70 - 100) mg/dL 04/26/22 04/26/22 Range/Units 21:27 19:27 WBC (4.8-10.8) x10^3/uL RBC (4.20-5.40) 10^6/uL Hgb (12.0-16.0) g/dL Hct (37.0-47.0) % MCV (81.0-99.0) fL MCH (27.0-31.0) pg MCHC (32.0-36.0) g/dL RDW (12.0-15.0) % Plt Count (130-450) 10^3/uL MPV (7.9-10.8) fL Neut # (Auto) Lymph # (Auto) [place] # (Auto) Eos # (Auto) Baso # (Auto) Absolute Nucleated RBC Total Counted Band Neuts % (Manual) (0 - 10) % Abnorm Lymph % (Manual) % Nucleated RBC % Neutrophils # (Manual) (1.5-6.6) 10^3/uL Lymphocytes # (Manual) (1.5-3.5) 10^3/uL Monocytes # (Manual) (0.0-1.0) 10^3/uL Eosinophils # (Manual) (0-0.7) 10^3/uL Basophils # (Manual) (0-0.1) 10^3/uL Differential Comment WBC Morphology (NORMAL) Platelet Estimate (NORMAL) Platelet Morphology (NORMAL) RBC Morph Micro Appear (NORMAL) POC Whole Bld Glucose 94 106 H (70 - 100) mg/dL - Other Results/Comments Other Results/Comments: exam: Labial swelling much improved. Vaginal packing removed. Small amount of clotted blood in the vagina. Bruising from perineum to mid buttocks on right side. Assessment/Plan - Problem List (1) Vaginal hematoma Impression: Much improved. Swelling is gone down greatly. She does have a significant mount of bruising which is not anticipated for this, although the spread is greater than I would anticipate. Enriquez to remain in place for several hours. Will remove and allow patient to attempt urination. She is worried about this, so we will take it slow. (2) Spontaneous vaginal delivery Impression: day 0 -Routine care -Possible discharge tomorrow (3) White classification A1 gestational diabetes mellitus Impression: Fasting glucose in the a.m. Plan to follow-up on 2-hour GTT. (4) Hypothyroidism Impression: Resume home levothyroxine
[2022-04-27] MEDS: miSOPROStoL 100 MCG TABLET BC SCH (19:54)
[2022-04-27] MEDS: DOCUSATE SODIUM 100 MG CAPSULE PO PRN (21:18)
[2022-04-28] MEDS: HYDROcod/ACETAM 5/325 MG TABLET PO PRN ×3 (01:20→11:29)
[2022-04-28] MEDS: KETOROLAC 30 MG/ML VIAL IVP PRN (04:28)
[2022-04-28] MEDS: ACETAMINOPHEN 325 MG TABLET PO SCH ×2 (04:28→11:28)
[2022-04-28 05:53] LABS: BASOPHILS # (AUTO) 0.1 10^3/uL (0.0-0.1); BASOPHILS % (AUTO) 0.5 %; EOSINOPHILS # (AUTO) 0.3 10^3/uL (0.0-0.7); EOSINOPHILS % (AUTO) 2.3 %; HCT - HEMATOCRIT 23.7 % (37.0-47.0); LYMPHOCYTES # (AUTO) 2.7 10^3/uL (1.5-3.5); LYMPHOCYTES % (AUTO) 18.7 %; MEAN CORPUSCULAR HEMOGLOBIN 33.8 pg (27.0-31.0); MEAN CORPUSCULAR HGB CONC 33.8 g/dL (32.0-36.0); MEAN PLATELET VOLUME 10.3 fL (7.9-10.8); PLT - PLATELET COUNT 156 10^3/uL (130-450); RED BLOOD COUNT 2.37 10^6/uL (4.20-5.40); WHITE BLOOD COUNT 14.3 x10^3/uL (4.8-10.8)
[2022-04-28] MEDS ORDERED: LEVOTHYROXINE 25 MCG TABLET PO SCH (07:00)
[2022-04-28 07:34] VITALS: BP 90/53
--- NOTE | 2022-04-28 08:55 | Discharge Plan ---
Discharge Plan Problem Reviewed?: Yes Disposition: Home, Self Care Condition: Good Prescriptions: oxyCODONE [Roxicodone] 5 mg PO Q4HR PRN #15 tab PRN Reason: Pain Docusate Sodium 100Mg Capsule [Colace 100Mg Capsule] 100 mg PO BID PRN #60 cap PRN Reason: constipation Diet: Regular Activity Restrictions: Additional Comments Shower Restrictions: No Driving Restrictions: Yes (For two week or while taking opioid pain medications) Instruction Topics: Vaginal After No Smoking: If you smoke, Please STOP! Call for help. Follow-up with: Rios Vaca MD [Provider Admit Priv/Credential] -
--- NOTE | 2022-04-28 08:58 | DISCHARGE SUMMARY ---
Discharge Summary Admit Date: 04/26/22 Discharge Date: 04/28/22 Discharging Provider: Rios Vaca MD Code Status: Attempt Resuscitation Condition at Discharge: Good Discharge Disposition: 01 Home, Self Care - DIAGNOSES Admission Diagnoses: 39 weeks gestation A1 gestational diabetes Hypothyroidism Anxiety Discharge Diagnoses with Status of Each Condition: 39 weeks gestation: Delivered A1 GDM: Resolved Hypothyroidism: Stable Anxiety: Stable Status post spontaneous vaginal delivery Vulvar hematoma: Stable - HPI History of Present Illness: Subjective Patient reports she is doing well. Lochia appropriate. Denies heavy bleeding. Ambulating. Pelvic and abdominal pain well-controlled. Tolerating oral intake. Diet: Regular. Voiding without difficulty. Passing flatus. Denies BM. Patient is bonding with baby in room Breast feeding going well. Denies feeling lightheaded, dizzy or excessively fatigued. Control: Likely IUD Objective General: Alert, oriented, no apparent distress. Cardiovascular: Regular rate. Regular rhythm. Lungs: No increased work of breathing. Abdomen: Uterus firm. Below umbilicus. No guarding or rebound. Perineum: Labial swelling improved. Bruising from perineum to mid buttock. - HOSPITAL COURSE Hospital Course: Patient is a 37-year-old G1, P0 admitted at 39 weeks gestation for induction of labor secondary to A1 GDM. She received 1 dose of misoprostol followed by a cervical ripening balloon. She then had balloon expelled spontaneously and subsequent amniotomy with a moderate amount of moderate meconium. She had uneventful labor progressing to complete and an easy second stage. Placenta was removed intact. She had a small first-degree midline laceration repaired with 1 stitch. She gave to a healthy female weighing 3176 g. Approximately 2 hours , she began having significant perineal pain and was noted to have a swollen right labia. She did not tolerate exam in the labor room, so she taken to the OR for conscious sedation. Exam showed a hematoma spreading proximally usp up her vagina with no active bleeding or spread. This was further stopped with vaginal packing left in telemetry following evening. After its removal, swelling decreased greatly and patient's pain im proved significantly. She still had some discomfort, but desired to go home and was discharged on day 1. - ALLERGIES Allergies/Adverse Reactions: Allergies Allergy/AdvReac Type Severity Reaction Status Date / Time grass pollen Allergy Unknown Verified 02/15/22 10:50 - MEDICATIONS Home Medications: Ambulatory Orders Medication Instructions Recorded Confirmed Escitalopram [Lexapro] 10 mg PO DAILY 02/15/22 02/15/22 Levothyroxine Sodium 50 mcg PO DAILY 02/15/22 02/15/22 [Levothyroxine] Docusate Sodium 100Mg Capsule 100 mg PO BID PRN #60 cap 04/28/22 [Colace 100Mg Capsule] Ibuprofen [Motrin] 600 mg PO Q6H PRN #30 tab 04/28/22 oxyCODONE [Roxicodone] 5 mg PO Q4HR PRN #15 tab 04/28/22 - LABS Result Diagrams: 04/28/22 05:41 - FOLLOW UP Follow Up: With Rios Vaca in 1 to 2 weeks at [facility] - TIME SPENT Time Spent in Discharge (Minutes): 30
[2022-04-28] MEDS ORDERED: FERRIC GLUCONATE 125 MG in SODIUM CHLORIDE 0.9% 100ML 100 ML IV ONE (10:00)
[2022-04-28] MEDS ORDERED: IBUPROFEN 800 MG TABLET PO PRN (11:20)
[2022-04-28] MEDS: DOCUSATE SODIUM 100 MG CAPSULE PO PRN (11:29)
--- NOTE | 2022-04-28 12:31 | Labor Flowsheet ---
Labor Flowsheet Datetime Report Generated by CPN: 04/28/2022 12:31 Datetime: 04/28/2022 07:14 VITAL SIGNS NBP Sys/Naomi/Mean (mmHg): 90 : 53 : 60 Pulse: 87 Datetime: 04/27/2022 05:36 Membranes Ruptured Date/Time: 04/26/2022 21:40 Amniotic Fluid Color: Light Meconium Amniotic Fluid Odor: None Datetime: 04/27/2022 04:55 SpO2 (%): 100 Datetime: 04/27/2022 04:30 Communication Comments: Decision made by Dr. Vaca to go to the OR to remove hematoma Datetime: 04/27/2022 04:12 Medication Comments: nitrous oxide started Datetime: 04/27/2022 04:08 Vaginal Exam Comments: pt complaints of pressure Datetime: 04/27/2022 03:45 Patient Position/Activity: Left Lateral Datetime: 04/27/2022 03:00 Stage of : Recovery PAIN Pain Scale: 6 Pain Presence: Constant Pain Type: Pressure Pain Location: Perineum Pain Relief Measures: Comfort Measures Datetime: 04/27/2022 01:30 MEDICATIONS Pitocin (milliunits): Started @ 999 Datetime: 04/27/2022 01:27 LaborFlag: Labor Datetime: 04/27/2022 01:21 STAGE 2 Pushing: Coached on Pushing; Urge to Push Pushing Position: Pushing with Contractions; Pushing Lithotomy Pushing Progress: with Pushing Datetime: 04/27/2022 01:20 Contraction Comments: unable to assess completely due to maternal movement ASSESSMENT A Monitor Mode: External US FHR Baseline Rate : 135 Variability: Moderate 6-25 bpm Accelerations: 15X15 Decelerations: None Category: Category I Datetime: 04/27/2022 01:15 UTERINE ACTIVITY Monitor Mode: External Frequency (min): 2-2.5 Quality: Strong Duration (sec): 60-70 Pattern: Normal: <= 5 Contractions in 10 Minutes Resting Tone (Palpate): Relaxed Anesthesia Level Check: T10- Umbilicus Datetime: 04/27/2022 01:10 Comments: unable to assess due to maternal movement Datetime: 04/27/2022 01:01 FHR Baseline Changes: No Baseline Change Datetime: 04/27/2022 00:57 Monitor Interventions for FHR: Ultrasound Adjusted Datetime: 04/27/2022 00:49 I/O Interventions: Enriquez Discontinued Datetime: 04/27/2022 00:45 Stage 2 Comments: practice push Datetime: 04/27/2022 00:44 VAGINAL EXAM Dilatation (cm): 10.0 Effacement (%): 100 Station: 1 Datetime: 04/27/2022 00:43 COMMUNICATION Communication: Provider at Bedside Datetime: 04/27/2022 00:32 Provider Notified (Name): Dr. Lio Notification Reason: Labor Status Nurse Giving Report: C. Stobaugh Datetime: 04/27/2022 00:29 Exam by: C Stobaugh RN Datetime: 04/26/2022 23:35 Temperature (C): 37.6 Bedside Blood Glucose: 90 Datetime: 04/26/2022 22:58 Actions for Decelerations: Side to Side Datetime: 04/26/2022 22:46 Patient Care Comments: peanut ball removed Datetime: 04/26/2022 21:46 Respirations: 16 Datetime: 04/26/2022 21:40 Membrane Status: Meconium Membranes Rupture Method: Artificial Amniotic Fluid Amount: Moderate Datetime: 04/26/2022 20:02 Epidural Procedure: Completed Epidural Procedure Other: Pump Started Datetime: 04/26/2022 19:41 Anesthesia Comments: local placed Datetime: 04/26/2022 19:37 Pain Coping: Breathing Through Contractions; Requesting Pain Medication or Epidural ANESTHESIA Anesthesia Plans: Epidural Epidural Positioning: Sitting Datetime: 04/26/2022 19:17 Nurse Receiving Report: A. Little RN Datetime: 04/26/2022 19:08 PATIENT CARE IV/Blood Work: IV Bolus Started Datetime: 04/26/2022 19:01 Analgesics/Sedatives: Fentanyl (mcg) @ 50 Datetime: 04/26/2022 16:34 Monitor Interventions for UA: [place] Adjusted Datetime: 04/26/2022 15:41 Cervix, Consistency: Soft Cervix, Position: Posterior Datetime: 04/26/2022 14:10 Membrane Comments: Pt c/o lof, nitrazine neg Datetime: 04/26/2022 13:30 Temperature Route: Oral Pain Assessment Comments: Datetime: 04/26/2022 11:02 Cervical Ripening Agents: Enriquez Balloon; Cytotec @ Datetime: 04/26/2022 10:35 Vaginal Bleeding: None
== END 2022-04-28 12:25 | disposition home or self-care (01) | DRG 768 ==
LOC: WFO 09:30 → FBP 09:32 → WFO 09:37 → FBP 09:38 → UNDOADMOB 09:38 → OBSVTOIN 19:34
PROVIDERS: ADMIT Obstetrics & Gynecology; ATTEND Obstetrics & Gynecology
PROC: 10907ZC Drainage of Amniotic Fluid, Therapeutic from Products of Conception, Via Natural or Artificial Opening (ICD-10-PCS; principal; 2022-04-26)
PROC: 0U9G7ZZ Drainage of Vagina, Via Natural or Artificial Opening (ICD-10-PCS; 2022-04-26)
PROC: 10E0XZZ Delivery of Products of Conception, External Approach (ICD-10-PCS; 2022-04-26)
PROC: 0U9MX0Z Drainage of Vulva with Drainage Device, External Approach (ICD-10-PCS; 2022-04-26)
PROC: 0HQ9XZZ Repair Perineum Skin, External Approach (ICD-10-PCS; 2022-04-26)
PROC: 3E0DXGC Introduction of Other Therapeutic Substance into Mouth and Pharynx, External Approach (ICD-10-PCS; 2022-04-26)
PROC: 0U7C7ZZ Dilation of Cervix, Via Natural or Artificial Opening (ICD-10-PCS; 2022-04-26)
DX: O99.344 Other mental disorders complicating childbirth (principal); Z37.0 Single live birth; O44.43 Low lying placenta NOS or without hemorrhage, third trimester; O71.7 Obstetric hematoma of pelvis; F41.9 Anxiety disorder, unspecified; O99.284 Endocrine, nutritional and metabolic diseases complicating childbirth; E03.9 Hypothyroidism, unspecified; O24.420 Gestational diabetes mellitus in childbirth, diet controlled; Z3A.39 39 weeks gestation of pregnancy; O77.0 Labor and delivery complicated by meconium in amniotic fluid; O70.0 First degree perineal laceration during delivery; Z79.890 Hormone replacement therapy; Z79.899 Other long term (current) drug therapy; Z79.82 Long term (current) use of aspirin
CPT/HCPCS: 36415; 85025; 86850; 86900; 86901; 96360; 96361; A9270; J1170; J2210; J2916; J7120

== ENCOUNTER 2022-09-30 07:43 | Outpatient (CLI) | payer OTHER ==
[2022-09-30 08:20] LABS: GTT GLUCOSE,FASTING 90 mg/dL (70-100)
[2022-09-30 08:40] LABS: THYROID STIMULATING HORMONE 1.65 uIU/mL (0.34-5.60)
== END 2022-09-30 07:44 | disposition home or self-care (01) ==
LOC: LAB 07:43
PROVIDERS: ATTEND Obstetrics & Gynecology
DX: O99.280 Endocrine, nutritional and metabolic diseases complicating pregnancy, unspecified trimester (principal); O24.410 Gestational diabetes mellitus in pregnancy, diet controlled; E03.9 Hypothyroidism, unspecified
CPT/HCPCS: 36415; 82951; 84443

== ENCOUNTER 2023-08-14 12:17 | Outpatient (CLI) | payer OTHER ==
[2023-08-14 13:12] LABS: THYROID STIMULATING HORMONE 0.92 uIU/mL (0.34-5.60)
== END 2023-08-14 12:18 | disposition home or self-care (01) ==
LOC: LAB 12:17
PROVIDERS: ATTEND Obstetrics & Gynecology
DX: E03.9 Hypothyroidism, unspecified (principal); L65.9 Nonscarring hair loss, unspecified
CPT/HCPCS: 36415; 84443